=== PATIENT | female | born 1935 | race Caucasian/White ===

== ENCOUNTER 2023-07-02 08:52 | Outpatient (RCR) | payer MEDICARE, SELFPAY | END 2023-08-03 12:08 | disposition home or self-care (01) | LOC: HO.WCC 08:52 | PROVIDERS: Visit Provider Surgery | DX: I87.313 Chronic venous hypertension (idiopathic) with ulcer of bilateral lower extremity (principal); L97.822 Non-pressure chronic ulcer of other part of left lower leg with fat layer exposed; L97.812 Non-pressure chronic ulcer of other part of right lower leg with fat layer exposed; I10 Essential (primary) hypertension; Z79.01 Long term (current) use of anticoagulants; Z79.82 Long term (current) use of aspirin; Z79.52 Long term (current) use of systemic steroids; Z79.891 Long term (current) use of opiate analgesic; Z79.899 Other long term (current) drug therapy; Z86.718 Personal history of other venous thrombosis and embolism; Z92.21 Personal history of antineoplastic chemotherapy; Z92.3 Personal history of irradiation | CPT/HCPCS: 11042; 11045 ==